=== PATIENT | male | born 1965 ===

== ENCOUNTER 2023-08-15 16:52 | Inpatient (IN) | payer OTHER ==
[2023-08-15] MEDS ORDERED: Sodium Chloride 0.9% 100 ML ONE (17:19)
[2023-08-15] MEDS ORDERED: Cefepime 2 GM VIAL ONE (17:19)
[2023-08-15 17:45] LABS: Hematocrit 26.7 % (42.0-52.0); Hemoglobin 9.2 g/dL (14.0-18.0); Manual Diff?? YES; Mean Corpuscular HGB CONC 34.5 g/dL (32.0-36.0); Mean Corpuscular Hemoglobin 29.3 pg (27.0-31.0); Mean Platelet Volume 10.6 fL (7.4-10.4); Platelet Count 222 10x3/uL (130-400); RBC Distribution Width 13.2 % (11.5-14.5); Red Blood Cell (RBC) Count 3.14 mill/uL (4.70-6.10); White Blood Cell (WBC) Count 20.8 10x3/uL (4.8-10.8)
[2023-08-15 17:48] LABS: Delete Auto Diff?? YES
[2023-08-15 18:09] LABS: ALT (SGPT) 62 U/L (8-55); AST (SGOT) 130 U/L (5-34); Albumin 3.1 g/dL (3.5-5.0); Alkaline Phosphatase 82 U/L (40-110); Anion Gap 14 mmol/L (10-20); BUN (Urea Nitrogen) 49 mg/dL (8.4-25.7); Bilirubin, Total 2.7 mg/dL (0.2-1.2); Calc. Creatinine Clearance 0 mL/min (70-130); Calcium 8.4 mg/dL (7.8-10.44); Carbon Dioxide 21 mmol/L (22-29); Chloride 95 mmol/L (98-107); Estimated GFR 35; Globulin 3.5 g/dL (2.4-3.5); Glucose 295 mg/dL (70-105); Protein, Total 6.6 g/dL (6.0-8.3); Sodium 127 mmol/L (136-145)
[2023-08-15 18:12] LABS: Troponin I 0.109 ng/mL (< 0.028)
[2023-08-15 18:24] LABS: Band 22 % (5-11); CellaVision Operator ID LAB.MJL; Large Platelets 8.1 % (0-5); Lymphocytes 1 % (21-51); Monocytes 4 % (0-10); Neutrophil 73 % (42-75); Nucleated RBC (Manual Ct) 1 % (0); Ovalocytes SLIGHT = 2-5 cells HPF (0-1); Platelet Adequacy Comment Platelets Normal; Poikilocytosis SLIGHT = 6-15 cells HPF (0-5); Polychromasia SLIGHT = 2-3 cells HPF (0-2); Schistocytes SLIGHT = 2-5 cells HPF (0-1); Total Cell Count 99
[2023-08-15 20:55] LABS: Lactic Acid 3.2 mmol/L (0.5-2.2)
[2023-08-15] MEDS ORDERED: Furosemide 40 MG (4 mL) VIAL ONE (22:44)
[2023-08-15] MEDS ORDERED: methylPREDNISolone Sod Succ/PF 125 MG/2 ML VIAL ONE (22:44)
[2023-08-15] MEDS ORDERED: Albuterol 2.5 MG (3 mL) NEB ONE (22:49)
[2023-08-15] MEDS ORDERED: Ipratropium/Albuterol 3 ML NEB ONE (22:50)
[2023-08-15] MEDS ORDERED: Acetaminophen 325 MG TAB PO PRN (23:06)
[2023-08-15] MEDS ORDERED: Senokot S 8.6-50 MG TAB PO PRN (23:06)
[2023-08-15] MEDS ORDERED: Ondansetron ODT 4 MG TAB PO PRN (23:06)
[2023-08-15] MEDS ORDERED: Ipratropium/Albuterol 3 ML NEB NEB PRN (23:39)
[2023-08-15] MEDS ORDERED: Dextrose 5% in Water 1,000 ML IV PRN (23:43)
[2023-08-15] MEDS ORDERED: Glucagon 1 MG/ML KIT IM PRN (23:43)
[2023-08-15] MEDS ORDERED: Dextrose 50% Abboject 50 ML SYRINGE SLOW IVP PRN (23:43)
[2023-08-15 23:56] LABS: Magnesium 1.9 mg/dL (1.6-2.6); Phosphorus 5.5 mg/dL (2.3-4.7)
[2023-08-16 00:22] LABS: Troponin I 0.101 ng/mL (< 0.028)
[2023-08-16] MEDS ORDERED: Doxycycline 100 MG in Sodium Chloride 0.9% 100 ML IVPB SCH (01:00)
[2023-08-16] MEDS ORDERED: Cefepime 2 GM VIAL IVPB SCH (02:00)
[2023-08-16] MEDS: Vancomycin 2.5 GM Sodium Chloride 0.9% 500 ML IVPB SCH (02:07)
[2023-08-16] MEDS: Potassium Chloride 20 MEQ (100 mL) BAG IVPB SCH (02:31)
[2023-08-16] MEDS: metroNIDAZOLE 500 MG in Premix 1 BAG IVPB SCH (02:31)
[2023-08-16 04:01] LABS: Hematocrit 25.1 % (42.0-52.0); Hemoglobin 8.5 g/dL (14.0-18.0); Manual Diff?? YES; Mean Corpuscular HGB CONC 33.9 g/dL (32.0-36.0); Mean Corpuscular Hemoglobin 29.2 pg (27.0-31.0); Mean Corpuscular Volume 86.3 fl (78.0-98.0); Mean Platelet Volume 11.1 fL (7.4-10.4); Platelet Count 196 10x3/uL (130-400); RBC Distribution Width 13.5 % (11.5-14.5); Red Blood Cell (RBC) Count 2.91 mill/uL (4.70-6.10); White Blood Cell (WBC) Count 23.4 10x3/uL (4.8-10.8)
[2023-08-16 04:05] LABS: Delete Auto Diff?? YES
[2023-08-16 04:12] LABS: Bacteria/HPF None Seen HPF (None Seen); Bilirubin Negative (Negative); Blood, Urine 3+ (Negative); Clarity Turbid (Clear); Glucose, Urine (Dipstick) 30 mg/dL (Negative); Ketone, Urine Negative (Negative); Leukocyte Negative Leu/uL (Negative); Nitrite Negative (Negative); Protein, Urine (Dipstick) 50 mg/dL (Neg-Trace); RBC/HPF 0-3 HPF (0-3); Specific Gravity, Urine 1.029 (1.002-1.036); Squamous Epithelial 0-3 HPF (0-3); Urobilinogen Normal mg/dL (Less than 2); pH, Urine 5.5 (5.0-9.0)
[2023-08-16 04:22] LABS: Lactic Acid 2.9 mmol/L (0.5-2.2)
[2023-08-16 04:30] LABS: ALT (SGPT) 95 U/L (8-55); AST (SGOT) 212 U/L (5-34); Alkaline Phosphatase 82 U/L (40-110); Anion Gap 16 mmol/L (10-20); BUN (Urea Nitrogen) 64 mg/dL (8.4-25.7); Bilirubin, Total 2.5 mg/dL (0.2-1.2); Calc. Creatinine Clearance 65 mL/min (70-130); Carbon Dioxide 20 mmol/L (22-29); Chloride 96 mmol/L (98-107); Estimated GFR 28; Globulin 3.4 g/dL (2.4-3.5); Glucose 374 mg/dL (70-105); Potassium 3.5 mmol/L (3.5-5.1); Protein, Total 6.4 g/dL (6.0-8.3); Sodium 128 mmol/L (136-145)
[2023-08-16 04:32] LABS: Troponin I 0.088 ng/mL (< 0.028)
[2023-08-16 05:06] LABS: Band 12 % (5-11); Burr Cells SLIGHT = 2-5 cells HPF (0-1); CellaVision Operator ID lab.sh2; Lymphocytes 1 % (21-51); Macrocytosis SLIGHT = 6-15 cells HPF (0-5); Monocytes 2 % (0-10); Neutrophil 84 % (42-75); Ovalocytes SLIGHT = 2-5 cells HPF (0-1); Platelet Adequacy Comment Platelets Normal; Polychromasia MODERATE = 3-4 cells HPF (0-2); Total Cell Count 100; Vacuoles SLIGHT
[2023-08-16] MEDS: HumaLOG 300 UNITS/3 ML VIAL SC PRN ×2 (05:58→20:44)
[2023-08-16] MEDS: Cefepime 2 GM VIAL IVPB SCH (05:59)
[2023-08-16] MEDS ORDERED: Vancomycin 1 GM in Sodium Chloride 0.9% 250 ML 300 ML IVPB SCH (09:00)
[2023-08-16] MEDS ORDERED: Vancomycin HCl 750 MG in Sodium Chloride 0.9% 250 ML 250 ML IVPB SCH (09:00)
[2023-08-16 09:45] LABS: Troponin I 0.082 ng/mL (< 0.028)
[2023-08-16] MEDS: Aspirin 81 mg Enteric Coated Tablet PO SCH (10:00)
[2023-08-16] MEDS: DULoxetine 30 MG CAP PO SCH (10:00)
[2023-08-16] MEDS: Famotidine 20 MG TAB PO SCH (10:00)
[2023-08-16] MEDS: methylPREDNISolone Sod Succ 40 MG VIAL IVP SCH (10:00)
[2023-08-16] MEDS: Heparin 5,000 UNITS/ML VIAL SC SCH (10:00)
[2023-08-16] MEDS: Vancomycin 1 GM in Premix 1 BAG IVPB SCH (10:16)
[2023-08-16] MEDS: Insulin NPH Human Isophane 100 UNITS/ML (10 ML VIAL) SQ SCH (12:00)
[2023-08-16 13:31] LABS: Legionella Urinary Ag Negative (Negative)
[2023-08-16] MEDS ORDERED: Iopamidol-370 76% 500 ML MDV (1 ML CHARGE) ONE (15:07)
[2023-08-16] MEDS: Sodium Chloride 0.9% 1,000 ML IV SCH (15:31)
[2023-08-16] MEDS: Cefepime 1 GM in Sodium Chloride 0.9% 100 ML IVPB SCH (17:49)
[2023-08-16] MEDS: Atorvastatin Calcium 40 MG TAB PO SCH (20:21)
[2023-08-16] MEDS: Docusate 100 MG CAP PO SCH (20:22)
[2023-08-16] MEDS: Carvedilol 25 MG TAB PO SCH (20:22)
[2023-08-17 05:15] LABS: Hematocrit 24.9 % (42.0-52.0); Hemoglobin 8.5 g/dL (14.0-18.0); Manual Diff?? YES; Mean Corpuscular HGB CONC 34.1 g/dL (32.0-36.0); Mean Corpuscular Hemoglobin 28.7 pg (27.0-31.0); Mean Corpuscular Volume 84.1 fl (78.0-98.0); Mean Platelet Volume 12.8 fL (7.4-10.4); Platelet Count 138 10x3/uL (130-400); RBC Distribution Width 13.5 % (11.5-14.5); Red Blood Cell (RBC) Count 2.96 mill/uL (4.70-6.10)
[2023-08-17 05:21] LABS: Delete Auto Diff?? YES
[2023-08-17 05:45] LABS: Band 20 % (5-11); CellaVision Operator ID LAB.CLH1; Hypochromia SLIGHT = 6-15 cells HPF (0-5); Lymphocytes 3 % (21-51); Monocytes 5 % (0-10); Neutrophil 72 % (42-75); Platelet Adequacy Comment Platelets Normal; Poikilocytosis SLIGHT = 6-15 cells HPF (0-5); Polychromasia SLIGHT = 2-3 cells HPF (0-2); Target Cells SLIGHT = 2-5 cells HPF (0-1); Total Cell Count 100
[2023-08-17 06:22] LABS: ALT (SGPT) 118 U/L (8-55); AST (SGOT) 246 U/L (5-34); Albumin 2.8 g/dL (3.5-5.0); Alkaline Phosphatase 97 U/L (40-110); Anion Gap 12 mmol/L (10-20); BUN (Urea Nitrogen) 73 mg/dL (8.4-25.7); Bilirubin, Total 2.1 mg/dL (0.2-1.2); Calc. Creatinine Clearance 82 mL/min (70-130); Calcium 8.3 mg/dL (7.8-10.44); Carbon Dioxide 21 mmol/L (22-29); Chloride 96 mmol/L (98-107); Estimated GFR 37; Globulin 3.6 g/dL (2.4-3.5); Potassium 3.7 mmol/L (3.5-5.1); Protein, Total 6.4 g/dL (6.0-8.3); Sodium 125 mmol/L (136-145)
[2023-08-17 06:28] LABS: Critical Call Chemistry REHAB.JMB @0627; Glucose 479 mg/dL (70-105)
[2023-08-17] MEDS: HumaLOG 300 UNITS/3 ML VIAL SC PRN (06:51)
[2023-08-17] MEDS: Vancomycin 1 GM in Premix 1 BAG IVPB SCH (09:08)
[2023-08-17] MEDS: Isosorbide Mononitrate 30 MG ER.TAB PO SCH (09:08)
[2023-08-17] MEDS: Sodium Chloride 0.9% 1,000 ML IV SCH (17:58)
[2023-08-18 06:45] LABS: #Monocytes 1.5 thou/uL (0.11-0.59); #Neutrophils 16.5 thou/uL (1.40-6.50); %Basophils 0.2 % (0.0-1.0); %Eosinophils 0.1 % (0.0-10.0); %Monocytes 7.6 % (0.0-10.0); %Neutrophils 85.3 % (42.0-75.0); Hemoglobin 7.9 g/dL (14.0-18.0); Mean Corpuscular HGB CONC 34.3 g/dL (32.0-36.0); Mean Corpuscular Volume 84.6 fl (78.0-98.0); Mean Platelet Volume 12.9 fL (7.4-10.4); RBC Distribution Width 13.3 % (11.5-14.5); Red Blood Cell (RBC) Count 2.72 mill/uL (4.70-6.10); White Blood Cell (WBC) Count 19.3 10x3/uL (4.8-10.8)
[2023-08-18 06:48] LABS: Platelet Count 83 10x3/uL (130-400)
[2023-08-18 07:01] LABS: ALT (SGPT) 85 U/L (8-55); AST (SGOT) 130 U/L (5-34); Albumin 2.6 g/dL (3.5-5.0); Alkaline Phosphatase 90 U/L (40-110); Anion Gap 10 mmol/L (10-20); BUN (Urea Nitrogen) 69 mg/dL (8.4-25.7); Bilirubin, Total 1.4 mg/dL (0.2-1.2); Calc. Creatinine Clearance 101 mL/min (70-130); Calcium 8.2 mg/dL (7.8-10.44); Carbon Dioxide 25 mmol/L (22-29); Chloride 98 mmol/L (98-107); Estimated GFR 46; Globulin 3.5 g/dL (2.4-3.5); Glucose 313 mg/dL (70-105); Potassium 3.9 mmol/L (3.5-5.1); Protein, Total 6.1 g/dL (6.0-8.3); Sodium 129 mmol/L (136-145)
[2023-08-18 07:17] LABS: Free T4 (Free Thyroxine) 3.05 ng/dL (0.70-1.48); Thyroid Stimulating Hormone 0.0519 uIU/mL (0.35-4.94)
[2023-08-18 08:14] LABS: Vancomycin, Trough 8.9 ug/mL
[2023-08-18] MEDS: Famotidine 20 MG TAB PO SCH (08:37)
[2023-08-18] MEDS: Cefepime 2 GM in Sodium Chloride 0.9% 100 ML IVPB SCH (18:00)
[2023-08-18] MEDS: HYDROcodone/Acetaminophen 5/325 mg Tablet PO PRN (18:00)
[2023-08-18] MEDS ORDERED: Vancomycin HCl 750 MG in Sodium Chloride 0.9% 250 ML 250 ML IVPB SCH (20:00)
[2023-08-18] MEDS: Insulin NPH Human Isophane 100 UNITS/ML (10 ML VIAL) SC SCH (21:19)
[2023-08-19 06:25] VITALS: BMI 46.0
[2023-08-19] MEDS: cefTRIAXone\\ROCEPHIN 2 GM in Sodium Chloride 0.9% 100 ML IVPB SCH (08:28)
[2023-08-19] MEDS: Furosemide 40 MG (4 mL) VIAL SLOW IVP SCH (21:06)
[2023-08-19 21:36] LABS: Mycoplasma pneumoniae IgG AB 229 U/mL (0-99); Mycoplasma pneumoniae IgM AB Less than 770 U/mL (0-769)
[2023-08-20 04:49] LABS: Hematocrit 24.3 % (42.0-52.0); Hemoglobin 8.1 g/dL (14.0-18.0); Manual Diff?? YES; Mean Corpuscular HGB CONC 33.3 g/dL (32.0-36.0); Mean Corpuscular Hemoglobin 28.8 pg (27.0-31.0); Mean Corpuscular Volume 86.5 fl (78.0-98.0); Mean Platelet Volume 12.8 fL (7.4-10.4); Platelet Count 111 10x3/uL (130-400); RBC Distribution Width 13.9 % (11.5-14.5); Red Blood Cell (RBC) Count 2.81 mill/uL (4.70-6.10); White Blood Cell (WBC) Count 26.4 10x3/uL (4.8-10.8)
[2023-08-20 05:10] LABS: Anion Gap 12 mmol/L (10-20); BUN (Urea Nitrogen) 37 mg/dL (8.4-25.7); Calc. Creatinine Clearance 143 mL/min (70-130); Calcium 8.5 mg/dL (7.8-10.44); Carbon Dioxide 24 mmol/L (22-29); Chloride 103 mmol/L (98-107); Estimated GFR 68; Glucose 257 mg/dL (70-105); Potassium 4.2 mmol/L (3.5-5.1); Sodium 135 mmol/L (136-145)
[2023-08-20 05:11] LABS: Delete Auto Diff?? YES
[2023-08-20 06:00] LABS: Anisocytosis SLIGHT = 6-15 cells HPF (0-5); Band 5 % (5-11); CellaVision Operator ID lab.sh2; Lymphocytes 4 % (21-51); Macrocytosis SLIGHT = 6-15 cells HPF (0-5); Monocytes 2 % (0-10); Neutrophil 89 % (42-75); Nucleated RBC (Manual Ct) 1 % (0); Ovalocytes SLIGHT = 2-5 cells HPF (0-1); Platelet Adequacy Comment Platelets Decreased; Poikilocytosis SLIGHT = 6-15 cells HPF (0-5); Polychromasia MODERATE = 3-4 cells HPF (0-2); Smudge Cells 21.2 %; Target Cells MODERATE= 6-15 cells HPF (0-1); Tear Drops SLIGHT = 2-5 cells HPF (0-1); Total Cell Count 99
[2023-08-20] MEDS ORDERED: Etomidate 40 MG (20 mL) VIAL ONE (10:02)
[2023-08-20] MEDS ORDERED: PROPOFOL 20 ML ONE (10:02)
[2023-08-20] MEDS ORDERED: Lidocaine 2% PF 5 ML VIAL ONE (10:02)
[2023-08-20] MEDS ORDERED: Ondansetron HCl/PF 4 MG/2 ML Vial IVP PRN (10:38)
[2023-08-20] MEDS ORDERED: Promethazine HCl 25 MG/ML VIAL IM PRN (10:38)
[2023-08-20] MEDS ORDERED: Iopamidol-370 76% 500 ML MDV (1 ML CHARGE) ONE (10:38)
[2023-08-20 17:58] LABS: HIV (1/2) Antibody/Antigen Non-Reactive (NonReactive); HIV 1/2 INDEX 0.15 S/CO (<1.00)
[2023-08-21 04:17] LABS: Hematocrit 22.2 % (42.0-52.0); Hemoglobin 7.4 g/dL (14.0-18.0); Manual Diff?? YES; Mean Corpuscular HGB CONC 33.3 g/dL (32.0-36.0); Mean Corpuscular Hemoglobin 28.2 pg (27.0-31.0); Mean Corpuscular Volume 84.7 fl (78.0-98.0); Mean Platelet Volume 12.1 fL (7.4-10.4); Platelet Count 164 10x3/uL (130-400); RBC Distribution Width 14.4 % (11.5-14.5); Red Blood Cell (RBC) Count 2.62 mill/uL (4.70-6.10); White Blood Cell (WBC) Count 25.5 10x3/uL (4.8-10.8)
[2023-08-21 04:20] LABS: Delete Auto Diff?? YES
[2023-08-21 04:50] LABS: Anion Gap 10 mmol/L (10-20); BUN (Urea Nitrogen) 30 mg/dL (8.4-25.7); Calc. Creatinine Clearance 166 mL/min (70-130); Calcium 8.4 mg/dL (7.8-10.44); Carbon Dioxide 28 mmol/L (22-29); Chloride 103 mmol/L (98-107); Estimated GFR 82; Glucose 232 mg/dL (70-105); Potassium 4.2 mmol/L (3.5-5.1); Sodium 137 mmol/L (136-145)
[2023-08-21 04:52] LABS: Band 9 % (5-11); CellaVision Operator ID LAB.CLH1; Eosinophils 1 % (0-10); Hypochromia SLIGHT = 6-15 cells HPF (0-5); Large Platelets 4.1 % (0-5); Lymphocytes 3 % (21-51); Monocytes 4 % (0-10); Myelocyte 3 % (0-0); Neutrophil 80 % (42-75); Platelet Adequacy Comment Platelets Normal; Polychromasia SLIGHT = 2-3 cells HPF (0-2); Target Cells SLIGHT = 2-5 cells HPF (0-1); Total Cell Count 98
[2023-08-21] MEDS: Amlodipine 10 MG TAB PO SCH (13:24)
[2023-08-21] MEDS: Furosemide 40 MG TAB PO SCH (13:24)
[2023-08-21] MEDS: Losartan 25 MG TAB PO SCH (13:24)
[2023-08-21] MEDS: Labetalol HCl 100 MG/20 ML VIAL SLOW IVP PRN (20:03)
[2023-08-21] MEDS: Spironolactone 25 MG TAB PO SCH (20:05)
[2023-08-21 20:09] VITALS: BP 188/99
[2023-08-21] MEDS: Sulfameth/Trimethoprim DS 800-160mg TAB PO SCH (20:11)
[2023-08-21 20:32] VITALS: TEMP 99.5
[2023-08-22] MEDS ORDERED: Losartan 25 MG TAB PO SCH (09:00)
[2023-08-22] MEDS ORDERED: Amlodipine 10 MG TAB PO SCH (09:00)
== END 2023-08-21 21:00 | DRG 871 ==
LOC: ERS 16:52 → EEVIPCON 23:02 → IMCU/EMU 23:02
PROVIDERS: ADMIT Internal Medicine; ATTEND Emergency Medicine
PROC: 0D718ZZ Dilation of Upper Esophagus, Via Natural or Artificial Opening Endoscopic (ICD-10-PCS; principal; 2023-08-20)
DX: A02.1 Salmonella sepsis (principal); I21.A1 Myocardial infarction type 2; J18.9 Pneumonia, unspecified organism; E87.20 Acidosis, unspecified; N17.9 Acute kidney failure, unspecified; I13.0 Hypertensive heart and chronic kidney disease with heart failure and stage 1 through stage 4 chronic kidney disease, or unspecified chronic kidney disease; E87.1 Hypo-osmolality and hyponatremia; I42.9 Cardiomyopathy, unspecified; Z68.41 Body mass index [BMI] 40.0-44.9, adult; I50.22 Chronic systolic (congestive) heart failure; A41.50 Gram-negative sepsis, unspecified; R65.20 Severe sepsis without septic shock; D64.9 Anemia, unspecified; E66.9 Obesity, unspecified; E87.6 Hypokalemia; R74.01 Elevation of levels of liver transaminase levels; E11.22 Type 2 diabetes mellitus with diabetic chronic kidney disease; N18.9 Chronic kidney disease, unspecified; E01.0 Iodine-deficiency related diffuse (endemic) goiter; E88.09 Other disorders of plasma-protein metabolism, not elsewhere classified; R13.10 Dysphagia, unspecified; Z88.1 Allergy status to other antibiotic agents
CPT/HCPCS: 36415; 36416; 36430; 36556; 70491; 71045; 71275; 74177; 76536; 76705; 80048; 80053; 80202; 81001; 83605; 83735; 83880; 84100; 84145; 84439; 84443; 84481; 84484; 85025; 85379; 86850; 86900; 86901; 87040; 87077; 87081; 87149; 87186; 87389; 87899; 93005; 93306; 94640; 96365; 96366; 96367; 96375; J0692; J0696; J1644; J1815; J1940; J2001; J2704; J2920; J2930; J3370; J3370-JW; J3480; J3490; J7030; J7050; J7611; J7620; P9016; Q9967